=== PATIENT | male | born 1990 | race Two or more races ===

== ENCOUNTER 2024-12-12 18:35 | Emergency (ER) | payer OTHER ==
[~2024-12-12] VITALS: Ht 165.1 cm; Wt 63.5 kg
[2024-12-12 18:44] VITALS: BP 122/77; TEMP 98.1; O2SAT 98
[2024-12-12] MEDS ORDERED: POLY10DR OP (19:36)
== END 2024-12-12 19:45 | disposition home or self-care (01) ==
LOC: ER 18:35
DX: H57.89 Other specified disorders of eye and adnexa (principal)